=== PATIENT | female | born 1980 ===

== ENCOUNTER 2017-09-09 13:26 | Emergency (ER) | payer OTHER ==
--- NOTE | 2017-09-09 15:23 | UC ---
Respiratory Complaint HPI - HPI Summary HPI Summary: 5 days of worsening cough, low grade temperature no illness exposures - History of Current Complaint Chief Complaint: UCRespiratory Stated Complaint: COUGH Time Seen by Provider: 09/09/17 15:17 Hx Obtained From: Patient Hx Last Menstrual Period: 2 weeks ago ?: No Onset/Duration: Gradual Onset, Lasting Days - 5, Still Present Timing: Constant Severity Initially: Moderate Severity Currently: Moderate Character: Cough: Nonproductive Aggravating Factors: Nothing Alleviating Factors: Nothing Associated Signs And Symptoms: Positive: Chills, Pleuritic Chest Pain, URI - Allergies/Home Medications Allergies/Adverse Reactions: Allergies Allergy/AdvReac Type Severity Reaction Status Date / Time No Known Allergies Allergy Verified 09/09/17 15:29 Home Medications: Home Medications Norethindrone Acetate-Ethinyl [Lo Loestrin Fe 1 mg-10 Mcg / 10 Mcg] 09/09/17 [ History] PMH/Surg Hx/FS Hx/Imm Hx Previously Healthy: Yes - Surgical History Surgical History: None - Family History Known Family History: Positive: None - Social History Occupation: Employed Full-time Lives: With Family Alcohol Use: None Substance Use Type: None Smoking Status (MU): Never Smoked Tobacco Review of Systems Constitutional: Chills, Fatigue Skin: Negative Eyes: Negative ENT: Sore Throat, Nasal Discharge Respiratory: Cough Cardiovascular: Negative Gastrointestinal: Negative Genitourinary: Negative Motor: Negative Neurovascular: Negative Musculoskeletal: Negative Neurological: Negative Psychological: Negative Is Patient Immunocompromised?: No All Other Systems Reviewed And Are Negative: Yes Physical Exam Triage Information Reviewed: Yes Appearance: Well-Appearing, No Pain Distress, Well-Nourished Vital Signs Reviewed: Yes Eye Exam: Normal Eyes: Positive: Conjunctiva Clear ENT Exam: Normal ENT: Positive: Normal ENT inspection, Hearing grossly normal, Pharynx normal, Nasal congestion, TMs normal, Uvula midline. Negative: Tonsillar swelling, Tonsillar exudate, Trismus, Muffled voice, Hoarse voice, Sinus tenderness Dental Exam: Normal Neck exam: Normal Neck: Positive: Supple, Nontender, No Lymphadenopathy Respiratory Exam: Normal Respiratory: Positive: Chest non-tender, Lungs clear, Normal breath sounds, No respiratory distress, No accessory muscle use Cardiovascular Exam: Normal Cardiovascular: Positive: RRR, No Murmur, Pulses Normal, Brisk Capillary Refill Musculoskeletal Exam: Normal Musculoskeletal: Positive: Strength Intact, ROM Intact, No Edema Neurological Exam: Normal Neurological: Positive: Alert, Muscle Tone Normal Psychological Exam: Normal Psychological: Positive: Normal Response To Family Skin Exam: Normal UC Diagnostic Evaluation - Laboratory Diagnostic Studies Comment: RST (-) Respiratory Course/Dx - Course Course Of Treatment: Zithromax, Ibuprofen,tylenol, robitussin AC, Tessalon, increase fluids folllow with pcp - Differential Dx/Diagnosis Provider Diagnoses: Bronchitis Discharge - Discharge Plan Condition: Stable Disposition: HOME Prescriptions: Azithromycin TAB* [Zithromax TAB (Z-NELIDA) 250 mg #6 tabs] 2 tab PO .TODAY, THEN 1 DAILY #1 nelida Benzonatate CAP* [Tessalon 100 MG CAP*] 100 mg PO TID PRN #30 cap PRN Reason: cough Guaifenesin-Codeine [Guaiatussin AC] 5 - 10 ml PO Q6HR #90 ml MDD 40ml Patient Education Materials: Acute Bronchitis (ED) Referrals: [facility] [place] [facility] [Outside] - If Needed
[2017-09-09 15:28] VITALS: BP 108/68
== END 2017-09-09 16:24 | disposition home or self-care (01) ==
LOC: UCCORT 13:26
DX: J40 Bronchitis, not specified as acute or chronic (principal)
CPT/HCPCS: 87502; 99202; G0463